=== PATIENT | female | born 1960 | race Caucasian/White ===

== ENCOUNTER 2017-03-08 10:25 | Emergency (ER) | payer OTHER ==
[~2017-03-08] VITALS: Ht 157.5 cm; Wt 72.6 kg
[2017-03-08] MEDS ORDERED: LORA10CA PO (10:42)
[2017-03-08] MEDS ORDERED: CELE10TA PO (10:42)
[2017-03-08] MEDS ORDERED: SIMV40TA2 PO (10:42)
[2017-03-08] MEDS ORDERED: LEVO88TA3 PO (10:42)
[2017-03-08 11:23] LABS: BASO % 0.7 % (0.0-1.0); EOS # 0.1 K/mm3 (0.0-0.50); EOS % 2.3 % (0.0-3.0); LARGE UNSTAINED CELL # 0.1 K/mm3 (0.0-0.4); LARGE UNSTAINED CELL % 1.5 % (0.0-4.0); LYMPH # 1.8 K/mm3 (1.5-4.5); LYMPH % 36.1 % (24.0-44.0); MEAN CORPUSCULAR HEMOGLOBIN 32.2 pg (27.0-33.0); MEAN CORPUSCULAR HGB CONC 33.8 g/dl (32.0-36.5); MEAN CORPUSCULAR VOLUME 95.2 fl (80.0-96.0); MONO # 0.2 K/mm3 (0.0-0.8); MONO % 4.3 % (0.0-5.0); NEUTROPHILS # 2.8 K/mm3 (1.8-7.7); NEUTROPHILS % 55.2 % (36.0-66.0); PLATELET COUNT, AUTOMATED 332 k/mm3 (150-450); WHITE BLOOD COUNT 5.1 K/mm3 (4.0-10.0)
[2017-03-08 12:41] VITALS: BP 127/86
--- NOTE | 2017-03-08 13:11 | REP ---
LIMITED ABDOMINAL ULTRASOUND: HISTORY: Probable mass abdominal wall. Multiple ultrasonographic images were obtained over the region labeled palpable area. There are no cystic or solid masses. IMPRESSION: No abnormalities noted. Signed by Elliott Grant DO 03/08/2017 01:33 P
== END 2017-03-08 12:45 | disposition home or self-care (01) ==
LOC: M ED 11:23
DX: R10.11 Right upper quadrant pain (principal); E78.5 Hyperlipidemia, unspecified; Z79.899 Other long term (current) drug therapy; Z88.0 Allergy status to penicillin; Z91.018 Allergy to other foods; Z91.040 Latex allergy status

== ENCOUNTER → 2018-12-24 | Outpatient (REF) | payer OTHER ==
[~2018-12-24] MED LIST: CELE10TA PO; LEVO88TA3 PO; LORA10CA PO; SIMV40TA2 PO
== END ==
LOC: M LAB REF 12:22
PROVIDERS: ATTEND Physician Assistant
DX: R19.7 Diarrhea, unspecified (principal)

== ENCOUNTER 2019-01-05 18:52 | Emergency (ER) | payer OTHER ==
[~2019-01-05] VITALS: Ht 157.5 cm; Wt 72.7 kg
[2019-01-05] MEDS ORDERED: SIMV20TA2 PO (19:30)
[2019-01-05] MEDS ORDERED: ESCI20TA PO (19:30)
[2019-01-05] MEDS ORDERED: TETRACAINE 0.5% OPHTH SOLN 4ML OU ONE (20:45)
[2019-01-05 22:07] VITALS: BP 139/79
== END 2019-01-05 22:08 | disposition home or self-care (01) ==
LOC: M ED 18:52
DX: H53.9 Unspecified visual disturbance (principal); Z79.899 Other long term (current) drug therapy; Z88.0 Allergy status to penicillin; Z91.013 Allergy to seafood; Z91.041 Radiographic dye allergy status

== ENCOUNTER → 2019-05-20 | Outpatient (REF) | payer OTHER ==
[~2019-05-20] MED LIST changes: +ESCI20TA PO; +SIMV20TA2 PO
[2019-05-24 00:06] LABS: Lyme Disease IgG/IgM Antibodie <0.91 ISR (0.00-0.90); Lyme Disease IgM Ab Quantitati <0.80 index (0.00-0.79)
== END ==
LOC: M LAB REF 16:16
PROVIDERS: ATTEND Physician Assistant
DX: Z11.8 Encounter for screening for other infectious and parasitic diseases (principal); W57.XXXA Bitten or stung by nonvenomous insect and other nonvenomous arthropods, initial encounter

== ENCOUNTER → 2020-03-27 | Outpatient (CLI) | payer OTHER ==
[~2020-03-27] MED LIST changes: -SIMV20TA2 PO; +SIMV20TA22 PO; -SIMV40TA2 PO; +SIMV40TA20 PO
--- NOTE | 2020-03-28 01:12 | REP ---
GREAT TOE SERIES, FOUR VIEWS: HISTORY: Great toe injury. FINDINGS: Four views of the left great toe show mild soft tissue swelling, particularly at the MTP joint. There is moderate osteoarthritic spurring at the 1st MTP joint. No fracture or subluxation is seen. 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 No fracture or acute bony abnormality. Some soft tissue swelling. Electronically Signed by Lazaro Yanez MD 03/28/2020 08:21 A
== END ==
LOC: M RAD 16:17
PROVIDERS: ATTEND Physician Assistant Medical
DX: S99.922A Unspecified injury of left foot, initial encounter (principal); X58.XXXA Exposure to other specified factors, initial encounter; Y92.9 Unspecified place or not applicable; M79.89 Other specified soft tissue disorders; M19.072 Primary osteoarthritis, left ankle and foot

== ENCOUNTER → 2020-10-09 | Outpatient (CLI) | payer SELFPAY | LOC: M LABSMTC 17:49 | PROVIDERS: ATTEND Pediatrics | DX: Z11.59 Encounter for screening for other viral diseases (principal) ==

== ENCOUNTER → 2023-02-06 | Outpatient (CLI) | payer OTHER ==
[~2023-02-06] MED LIST changes: -ESCI20TA PO; +ESCI20TA16 PO; +PROHANCE 279.3MG/ML 15ML VIAL As Ordered ONE
== END ==
LOC: M RAD 14:26
PROVIDERS: ATTEND Otolaryngology
DX: H93.A1 Pulsatile tinnitus, right ear (principal)
CPT/HCPCS: 70549; A9576

== ENCOUNTER → 2023-11-24 | Outpatient (CLI) | payer OTHER ==
[~2023-11-24] MED LIST changes: +E-Z-GAS II EFFERVESCENT PACKET (SODIUM BICARB./CITRIC ACID/SIMETHICONE) As Ordered ONE; +E-Z-HD 98% w/w 340GM SUSP BTL As Ordered ONE; +E-Z-PAQUE 96% w/w SUSP 176GM BTL As Ordered ONE; -PROHANCE 279.3MG/ML 15ML VIAL As Ordered ONE
== END ==
LOC: M RAD 08:02
PROVIDERS: ATTEND Registered Nurse
DX: K30 Functional dyspepsia (principal); K44.9 Diaphragmatic hernia without obstruction or gangrene

== ENCOUNTER → 2024-08-24 | Outpatient (CLI) | payer OTHER ==
[~2024-08-24] MED LIST changes: -E-Z-GAS II EFFERVESCENT PACKET (SODIUM BICARB./CITRIC ACID/SIMETHICONE) As Ordered ONE; -E-Z-HD 98% w/w 340GM SUSP BTL As Ordered ONE; -E-Z-PAQUE 96% w/w SUSP 176GM BTL As Ordered ONE
== END ==
LOC: M RAD 07:15
PROVIDERS: ATTEND Registered Nurse
DX: K30 Functional dyspepsia (principal)
CPT/HCPCS: 78264; A9541